=== PATIENT | female | born 1975 | race Asian ===

== ENCOUNTER → 2024-08-21 | Day surgery (SDC) | payer OTHER ==
[~2024-08-21] MED LIST: FAMCICLOVIR125 MG PO; FENTANYL CITRATE/PF 100MCG/2 ML INJ ONE; HAIR, SKIN & N1 EACH; L-LYSINE600 MG; LIDOCAINE HCL 2% LOCAL INJ 5 ML SDV VIAL INJ ONE; MIDAZOLAM HCL 2 MG/2 ML VIAL ONE; MULTI-VITAMIN1 EACH PO; PROPOFOL IV EMULSION 10 MG/ML 20 ML VIAL ONE; ZINC
[2024-08-21] MEDS: LACTATED RINGER'S 1,000 ML ONE (09:37)
[2024-08-21 10:20] VITALS: TEMP 97.5
[2024-08-21 11:05] VITALS: BP 122/82; PULSE 52; RESP 16; O2SAT 96
== END | disposition home or self-care (01) ==
LOC: OR 09:20
PROVIDERS: ATTEND Internal Medicine Gastroenterology
DX: K29.40 Chronic atrophic gastritis without bleeding (principal); K31.89 Other diseases of stomach and duodenum; Z88.8 Allergy status to other drugs, medicaments and biological substances; K31.A0 Gastric intestinal metaplasia, unspecified; K44.9 Diaphragmatic hernia without obstruction or gangrene
CPT/HCPCS: 43239; 81025; J2003; J2250; J2704; J7121